=== PATIENT | male | born 1990 | race Caucasian/White ===

== ENCOUNTER 2023-05-03 13:24 | Emergency (ER) | payer OTHER | END 2023-05-03 15:23 | disposition home or self-care (01) | LOC: JD.ED 13:24 | DX: T70.0XXA Otitic barotrauma, initial encounter (principal); S01.412A Laceration without foreign body of left cheek and temporomandibular area, initial encounter; W86.8XXA Exposure to other electric current, initial encounter | CPT/HCPCS: 99283 ==